=== PATIENT | male | born 1985 | race Caucasian/White ===

== ENCOUNTER 2018-10-03 07:49 | Emergency (ER) | payer BC ==
--- NOTE | 2018-10-03 08:31 | EDM.PDOC ---
ED HPI GENERAL MEDICAL PROBLEM - General Chief Complaint: Abdominal Pain Stated Complaint: ABDOMINAL PAIN RADIATING TO BACK Time Seen by Provider: 10/03/18 08:22 Source of Information: Reports: Patient History Limitations: Reports: No Limitations - History of Present Illness INITIAL COMMENTS - FREE TEXT/NARRATIVE: History of present illness: []Patient has felt pulsating in his abdomen without pain. Patient easily traveled to [facility] and his has the same symptoms. He has not had a change in his stools but states he was more constipated after the trip. She denies any fevers, chills, nausea, vomiting or blood in his stools. He made an appointment with Dr. Castrejon however he states he cannot wait for his appointment on the . Review of systems: As per history of present illness and below otherwise all systems reviewed and negative. Past medical history: As per history of present illness and as reviewed below otherwise noncontributory. Surgical history: As per history of present illness and as reviewed below otherwise noncontributory. Social history: No reported history of drug or alcohol abuse. Family history: As per history of present illness and as reviewed below otherwise noncontributory. Physical exam: General: Well developed, well nourished in NAD HEENT: Atraumatic, normocephalic, pupils reactive, negative for conjunctival pallor or scleral icterus, mucous membranes moist, throat clear, neck supple, nontender, trachea midline. Lungs: Clear to auscultation, breath sounds equal bilaterally, chest nontender. Heart: S1S2, regular, negative for clicks, rubs, or JVD. Abdomen: NABS, Soft, nondistended, nontender. Negative for masses or hepatosplenomegaly. Negative for costovertebral tenderness. Pelvis: Stable nontender. Genitourinary: Deferred. Rectal: Deferred. Extremities: Atraumatic, negative for cords or calf pain. Neurovascular unremarkable. Neuro: Awake, alert, oriented. Cranial nerves II through XII unremarkable. Cerebellum unremarkable. Motor and sensory unremarkable throughout. Exam nonfocal. Skin:warm and dry Diagnostics: Therapeutics: ED Course: Impression: Prescriptions: Plan: Definitive disposition and diagnosis as appropriate pending reevaluation and review of above. - Related Data Allergies Allergy/AdvReac Type Severity Reaction Status Date / Time No Known Allergies Allergy Verified 10/03/18 08:05 Home Meds: Home Meds buPROPion HCl [Wellbutrin Xl] 150 mg PO DAILY 10/03/18 [History] clonazePAM [Klonopin] 1 mg PO PRN 10/03/18 [History] Past Medical History HEENT History: Reports: None Cardiovascular History: Reports: None Respiratory History: Reports: None Gastrointestinal History: Reports: None Genitourinary History: Reports: None Musculoskeletal History: Reports: None Neurological History: Reports: None Psychiatric History: Reports: Anxiety Endocrine/Metabolic History: Reports: None Hematologic History: Reports: None Immunologic History: Reports: None Oncologic (Cancer) History: Reports: None Dermatologic History: Reports: None - Infectious Disease History Infectious Disease History: Reports: None - Past Surgical History Head Surgeries/Procedures: Reports: None HEENT Surgical History: Reports: None Social & Family History - Family History Family Medical History: Noncontributory - Caffeine Use Caffeine Use: Reports: None ED ROS GENERAL - Review of Systems Review Of Systems: ROS reveals no pertinent complaints other than HPI. ED EXAM, GI/ABD - Physical Exam Exam: See Below (See history of present illness) Course - Vital Signs Last Recorded V/S: Last Vital Signs Temp 97.5 F 10/03/18 08:06 Pulse 105 H 10/03/18 08:06 Resp 18 10/03/18 08:06 BP 150/98 H 10/03/18 08:06 Pulse Ox 97 10/03/18 08:06 - Orders/Labs/Meds Labs: Laboratory Tests 10/03/18 10/03/18 10/03/18 Range/Units 08:40 08:40 08:45 WBC 5.45 (4.0-11.0) K/uL RBC 5.37 (4.50-5.90) M/uL Hgb 16.1 (13.0-17.0) g/dL Hct 46.0 (38.0-50.0) % MCV 85.7 (80.0-98.0) fL MCH 30.0 (27.0-32.0) pg MCHC 35.0 (31.0-37.0) g/dL RDW Std Deviation 40.1 (28.0-62.0) fl RDW Coeff of Brant 13 (11.0-15.0) % Plt Count 204 (150-400) K/uL MPV 10.10 (7.40-12.00) fL Neut % (Auto) 58.5 (48.0-80.0) % Lymph % (Auto) 29.2 (16.0-40.0) % [place] % (Auto) 10.1 (0.0-15.0) % Eos % (Auto) 1.8 (0.0-7.0) % Baso % (Auto) 0.4 (0.0-1.5) % Neut # (Auto) 3.2 (1.4-5.7) K/uL Lymph # (Auto) 1.6 (0.6-2.4) K/uL [place] # (Auto) 0.6 (0.0-0.8) K/uL Eos # (Auto) 0.1 (0.0-0.7) K/uL Baso # (Auto) 0.0 (0.0-0.1) K/uL Nucleated RBC % 0.0 /100WBC Nucleated RBCs # 0 K/uL Sodium 141 (136-148) mmol/L Potassium 3.8 (3.5-5.1) mmol/L Chloride 106 (98-107) mmol/L Carbon Dioxide 24.6 (21.0-32.0) mmol/L BUN 23 H (7.0-18.0) mg/dL Creatinine 0.9 (0.8-1.3) mg/dL Est Cr Clr Drug Dosing 149.51 mL/min Estimated GFR (MDRD) > 60.0 ml/min Glucose 111 H (74-106) mg/dL Calcium 9.0 (8.5-10.1) mg/dL Total Bilirubin 0.4 (0.2-1.0) mg/dL AST 24 (15-37) IU/L ALT 66 H (14-63) IU/L Alkaline Phosphatase 56 (46-116) U/L Total Protein 7.3 (6.4-8.2) g/dL Albumin 3.8 (3.4-5.0) g/dL Globulin 3.5 (2.6-4.0) g/dL Albumin/Globulin Ratio 1.1 (0.9-1.6) Lipase 129 (73-393) U/L Urine Color YELLOW Urine Appearance CLEAR Urine pH 5.5 (5.0-8.0) Ur Specific [place] >= 1.030 (1.001-1.035) Urine Protein TRACE H (NEGATIVE) mg/dL Urine Glucose (UA) NEGATIVE (NEGATIVE) mg/dL Urine Ketones NEGATIVE (NEGATIVE) mg/dL Urine Occult Blood NEGATIVE (NEGATIVE) Urine Nitrite NEGATIVE (NEGATIVE) Urine Bilirubin NEGATIVE (NEGATIVE) Urine Urobilinogen 0.2 (<2.0) EU/dL Ur Leukocyte Esterase NEGATIVE (NEGATIVE) Urine RBC NONE SEEN (0-2/HPF) Urine WBC NONE SEEN (0-5/HPF) Ur Epithelial Cells RARE (NONE-FEW) Urine Bacteria RARE (NEGATIVE) Departure - Departure Time of Disposition: 09:42 Disposition: Home, Self-Care 01 Condition: Good Clinical Impression: Abdominal discomfort - Discharge Information *PRESCRIPTION DRUG MONITORING PROGRAM REVIEWED*: No *COPY OF PRESCRIPTION DRUG MONITORING REPORT IN PATIENT ABDIEL: No Referrals: Michael Castrejon MD [Primary Care Provider] - Forms: ED Department Discharge Additional Instructions: The following information is given to patients seen in the emergency department who are being discharged to home. This information is to outline your options for follow-up care. We provide all patients seen in our emergency department with a follow-up referral. The need for follow-up, as well as the timing and circumstances, are variable depending upon the specifics of your emergency department visit. If you don't have a primary care physician on staff, we will provide you with a referral. We always advise you to contact your personal physician following an emergency department visit to inform them of the circumstance of the visit and for follow-up with them and/or the need for any referrals to a consulting specialist. The emergency department will also refer you to a specialist when appropriate. This referral assures that you have the opportunity for follow-up care with a specialist. All of these measure are taken in an effort to provide you with optimal care, which includes your follow-up. Under all circumstances we always encourage you to contact your private physician who remains a resource for coordinating your care. When calling for follow-up care, please make the office aware that this follow-up is from your recent emergency room visit. If for any reason you are refused follow-up, please contact the [facility] Emergency Department at and asked to speak to the emergency department charge nurse. Follow-up with primary care. [facility] [address] [place] [id number]
[2018-10-03 09:07] LABS: CHLORIDE,CL 106 mmol/L (98-107); SODIUM,NA 141 mmol/L (136-148)
[2018-10-03 11:00] VITALS: BP 123/76
== END 2018-10-03 10:05 | disposition home or self-care (01) ==
LOC: MW.ED 07:49
DX: R10.9 Unspecified abdominal pain (principal)
CPT/HCPCS: 36415; 80053; 81001; 83690; 85025; 99283; 99284

== ENCOUNTER 2020-03-06 14:57 | Emergency (ER) | payer BC ==
[2020-03-06] MEDS ORDERED: LORazepam 2 MG/ML SDV IVPUSH ONE (15:07)
[2020-03-06] MEDS ORDERED: Sodium Chloride 0.9% 2.5 ML Syringe FLUSH PRN (15:07)
[2020-03-06] MEDS ORDERED: Sodium Chloride 0.9% 10 ML Syringe FLUSH PRN (15:07)
[2020-03-06] MEDS ORDERED: Lactated Ringers 1,000 ML IV ONE (15:08)
--- NOTE | 2020-03-06 15:13 | EDM.PDOC ---
ED HPI GENERAL MEDICAL PROBLEM - General Chief Complaint: Neuro Symptoms/Deficits Stated Complaint: DIZZY/ARM TINGLING Time Seen by Provider: 03/06/20 15:00 - History of Present Illness INITIAL COMMENTS - FREE TEXT/NARRATIVE: 35-year-old male with history of hypertension and anxiety presenting with left arm paresthesias headache and near syncope. Patient reports he was not feeling particularly anxious in his normal state of health when approximately 30 minutes ago he developed a tingling sensation in his left arm. This was then associated with an intense bilateral occipital headache that was associated with nausea tunnel vision and near syncope. He sat down and drank some water the headache is now more in the frontal area and has improved somewhat. He continues to have the left arm paresthesias. He thought it might be anxiety so he took 1 mg of Klonopin which he has a prescription for. Symptoms did not get better so he presents to the ER. No chest pain no shortness of breath no sensation of palpitation the headache was not sudden in onset was not 10 out of 10 was not worst headache of life. Patient denies weakness he denies a sensation of vertigo he denies any neck pain. Patient does note that over the last day he has had some mild chest congestion. 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 He felt like it was relatively normal for him he took Mucinex and had some symptom improvement. He denies cough or fever. - Related Data Allergies Allergy/AdvReac Type Severity Reaction Status Date / Time No Known Allergies Allergy Verified 03/06/20 15:03 Home Meds: Home Meds buPROPion HCL [Wellbutrin Xl] 300 mg PO DAILY 10/03/18 [History] clonazePAM [Klonopin] 1 mg PO ASDIRECTED PRN 10/03/18 [History] Past Medical History HEENT History: Reports: None Cardiovascular History: Reports: None Respiratory History: Reports: None Gastrointestinal History: Reports: None Genitourinary History: Reports: None Musculoskeletal History: Reports: None Neurological History: Reports: None Psychiatric History: Reports: Anxiety Endocrine/Metabolic History: Reports: None Hematologic History: Reports: None Immunologic History: Reports: None Oncologic (Cancer) History: Reports: None Dermatologic History: Reports: None - Infectious Disease History Infectious Disease History: Reports: None - Past Surgical History Head Surgeries/Procedures: Reports: None HEENT Surgical History: Reports: None Social & Family History - Family History Family Medical History: Noncontributory - Caffeine Use Caffeine Use: Reports: None ED ROS GENERAL - Review of Systems Review Of Systems: See Below Free Text/Narrative/Comment: General: No fever. Skin: No rash. Eyes: No vision problems. ENT: No sore throat. Neck: No neck stiffness. Respiratory: No shortness of breath. Cardiac: No chest pain. Gastrointestinal: No nausea, vomiting or abdominal pain. Urinary: No dysuria. Musculoskeletal: No myalgias/arthralgias. Neurologic: Per HPI ED EXAM, GENERAL - Physical Exam Exam: See Below Free Text/Narrative:: General Appearance: No acute distress, appears comfortable Skin: No rash HEENT: Normocephalic/atraumatic, sclera anicteric, mucous membranes moist Neck: Normal range of motion Chest and Lungs: Bilateral breath sounds, clear to auscultation Cardiovascular: Minimally tachycardic rate, regular rhythm, intact distal perfusion, no lower extremity edema Abdomen: Soft, non-tender Back: Normal Musculoskeletal: No edema or tenderness Neurologic: Awake and alert and oriented, cranial nerves III through XI intact bilaterally, strength intact bilateral upper and lower extremities, normal [id number] bilaterally Psychiatric: Appropriate, cooperative EKG INTERPRETATION EKG Interpretation Comments: Obtained at 1507 demonstrates normal sinus rhythm at a rate of 94 incomplete right bundle branch block QTC normal at 453 no acute ischemia Course - Vital Signs Last Recorded V/S: Last Vital Signs Temp 97.9 F 03/06/20 15:04 Pulse 104 H 03/06/20 15:04 Resp 20 03/06/20 15:04 BP 154/105 H 03/06/20 15:04 Pulse Ox 98 03/06/20 15:04 - Orders/Labs/Meds Orders: Active Orders 24 hr Category Date Time Status Cardiac Monitoring [RC] . DIRECTED Care 03/06/20 15:07 Active EKG Documentation Completion [RC] STAT Care 03/06/20 15:08 Active Pulse Oximetry [RC] ASDIRECTED Care 03/06/20 15:07 Active Sodium Chloride 0.9% [Saline Flush] Med 03/06/20 15:07 Active 10 ml FLUSH ASDIRECTED PRN Sodium Chloride 0.9% [Saline Flush] Med 03/06/20 15:07 Active 2.5 ml FLUSH ASDIRECTED PRN Saline Lock Insert [OM.PC] Stat Oth 03/06/20 15:07 Ordered Medication Orders Sodium Chloride (Saline Flush) 10 ml FLUSH ASDIRECTED PRN PRN Reason: Keep Vein Open Last Admin: 03/06/20 15:21 Dose: 10 ml Documented by: MAXIMILIANO Sodium Chloride (Saline Flush) 2.5 ml FLUSH ASDIRECTED PRN PRN Reason: Keep Vein Open Last Admin: 03/06/20 15:21 Dose: 2.5 ml Documented by: MAXIMILIANO Labs: Laboratory Tests 03/06/20 03/06/20 Range/Units 15:15 15:15 WBC 4.63 (4.0-11.0) K/uL RBC 5.29 (4.50-5.90) M/uL Hgb 15.5 (13.0-17.0) g/dL Hct 45.6 (38.0-50.0) % MCV 86.2 (80.0-98.0) fL MCH 29.3 (27.0-32.0) pg MCHC 34.0 (31.0-37.0) g/dL RDW Std Deviation 41.7 (28.0-62.0) fl RDW Coeff of Brant 13 (11.0-15.0) % Plt Count 200 (150-400) K/uL MPV 10.50 (7.40-12.00) fL Neut % (Auto) 54.7 (48.0-80.0) % Lymph % (Auto) 33.7 (16.0-40.0) % [place] % (Auto) 9.3 (0.0-15.0) % Eos % (Auto) 1.9 (0.0-7.0) % Baso % (Auto) 0.4 (0.0-1.5) % Neut # (Auto) 2.5 (1.4-5.7) K/uL Lymph # (Auto) 1.6 (0.6-2.4) K/uL [place] # (Auto) 0.4 (0.0-0.8) K/uL Eos # (Auto) 0.1 (0.0-0.7) K/uL Baso # (Auto) 0.0 (0.0-0.1) K/uL Nucleated RBC % 0.0 /100WBC Nucleated RBCs # 0 K/uL Sodium 138 (136-148) mmol/L Potassium 3.6 (3.5-5.1) mmol/L Chloride 102 (98-107) mmol/L Carbon Dioxide 24.4 (21.0-32.0) mmol/L BUN 19 H (7.0-18.0) mg/dL Creatinine 0.7 L (0.8-1.3) mg/dL Est Cr Clr Drug Dosing 188.60 mL/min Estimated GFR (MDRD) > 60.0 ml/min Glucose 107 H (74-106) mg/dL Calcium 8.8 (8.5-10.1) mg/dL Total Bilirubin 0.6 (0.2-1.0) mg/dL AST 32 (15-37) IU/L ALT 64 H (14-63) IU/L Alkaline Phosphatase 57 (46-116) U/L Troponin I < 0.050 (0.000-0.056) ng/mL Total Protein 7.1 (6.4-8.2) g/dL Albumin 4.0 (3.4-5.0) g/dL Globulin 3.1 (2.6-4.0) g/dL Albumin/Globulin Ratio 1.3 (0.9-1.6) Meds: Medications Generic Name Dose Route Start Last Admin Trade Name Fremyra PRN Reason Stop Dose Admin Sodium Chloride 10 ml 03/06/20 15:07 03/06/20 15:21 Saline Flush FLUSH 10 ml ASDIRECTED PRN Administration Keep Vein Open Sodium Chloride 2.5 ml 03/06/20 15:07 03/06/20 15:21 Saline Flush FLUSH 2.5 ml ASDIRECTED PRN Administration Keep Vein Open Discontinued Medications Generic Name Dose Route Start Last Admin Trade Name Freq PRN Reason Stop Dose Admin Lactated Ringer's 1,000 mls @ 999 mls/hr 03/06/20 15:08 03/06/20 15:20 Ringers, Lactated IV 03/06/20 16:08 999 mls/hr .BOLUS ONE Administration Lorazepam 1 mg 03/06/20 15:07 03/06/20 15:20 Ativan IVPUSH 03/06/20 15:08 1 mg ONETIME ONE Administration Departure - Departure Time of Disposition: 16:49 Disposition: Home, Self-Care 01 Condition: Good Clinical Impression: Paresthesias, Near syncope - Discharge Information *PRESCRIPTION DRUG MONITORING PROGRAM REVIEWED*: Not Applicable *COPY OF PRESCRIPTION DRUG MONITORING REPORT IN PATIENT ABDIEL: Not Applicable Instructions: Paresthesia, Near-Syncope Referrals: Michael Castrejon MD [Primary Care Provider] - Forms: ED Department Discharge Additional Instructions: You did appropriate self care prior to coming into the emergency room. The fact that your evaluation was reassuring today does not mean that it will be in the future. If you develop similar symptoms and they do not go away with rest oral fluids and your home medication I encourage you to present again for care. Please be sure to follow-up with your primary care doctor. The following information is given to patients seen in the emergency department who are being discharged to home. This information is to outline your options for follow-up care. We provide all patients seen in our emergency department with a follow-up referral. The need for follow-up, as well as the timing and circumstances, are variable depending upon the specifics of your emergency department visit. If you don't have a primary care physician on staff, we will provide you with a referral. We always advise you to contact your personal physician following an emergency department visit to inform them of the circumstance of the visit and for follow-up with them and/or the need for any referrals to a consulting specialist. The emergency department will also refer you to a specialist when appropriate. This referral assures that you have the opportunity for follow-up care with a specialist. All of these measure are taken in an effort to provide you with optimal care, which includes your follow-up. Under all circumstances we always encourage you to contact your private physician who remains a resource for coordinating your care. When calling for follow-up care, please make the office aware that this follow-up is from your recent emergency room visit. If for any reason you are refused follow-up, please contact the [facility] Emergency Department at and asked to speak to the emergency department charge nurse. Sepsis Event Note (ED) - Evaluation Sepsis Screening Result: No Definite Risk - Focused Exam Vital Signs: Vital Signs Temp Pulse Resp BP Pulse Ox 03/06/20 15:04 97.9 F 104 H 20 154/105 H 98 - My Orders Last 24 Hours: My Active Orders 03/06/20 15:07 Cardiac Monitoring [RC] . DIRECTED Pulse Oximetry [RC] ASDIRECTED Sodium Chloride 0.9% [Saline Flush] 10 ml FLUSH ASDIRECTED PRN Sodium Chloride 0.9% [Saline Flush] 2.5 ml FLUSH ASDIRECTED PRN Saline Lock Insert [OM.PC] Stat 03/06/20 15:08 EKG Documentation Completion [RC] STAT - Assessment/Plan Last 24 Hours: My Active Orders 03/06/20 15:07 Cardiac Monitoring [RC] . DIRECTED Pulse Oximetry [RC] ASDIRECTED Sodium Chloride 0.9% [Saline Flush] 10 ml FLUSH ASDIRECTED PRN Sodium Chloride 0.9% [Saline Flush] 2.5 ml FLUSH ASDIRECTED PRN Saline Lock Insert [OM.PC] Stat 03/06/20 15:08 EKG Documentation Completion [RC] STAT Assessment:: 35-year-old male presenting with paresthesias headache and near syncope. Multiple etiologies considered. Patient's neurologic exam is normal. He has no neuro deficit on exam presentation inconsistent with stroke. Subarachnoid hemorrhage considered I think it is unlikely given the description of the headache but symptom onset was within [address] scan of the brain will adequately exclude this. ACS considered the left arm paresthesias could be an anginal equivalent but he is relatively young for this. EKG and troponin pending. Nothing to suggest PE. Aortic dissection considered but he does not have any chest pain he does not have any back pain. There is no vertigo vertebral artery dissection considered and felt less likely. Stress and anxiety certainly could be a part of this IV fluid and Ativan has been ordered. Will reassess after imaging and blood work. Patient symptoms have resolved with Ativan and IV fluids. Imaging is normal blood work is normal. We discussed that getting started on the medication for his palpitations such as metoprolol may help but that it is important he follow- up with his primary care provider regarding this. Given the negative evaluation here the reassuring work-up I think it safe for discharge he can continue to follow-up with his primary care doctor. Return precautions discussed and understood.
[2020-03-06 16:03] LABS: BLOOD UREA NITROGEN,BUN 19 mg/dL (7.0-18.0); CARBON DIOXIDE,CO2 24.4 mmol/L (21.0-32.0); CHLORIDE,CL 102 mmol/L (98-107); GLUCOSE RANDOM 107 mg/dL (74-106); POTASSIUM,K 3.6 mmol/L (3.5-5.1); SODIUM,NA 138 mmol/L (136-148)
--- NOTE | 2020-03-06 16:26 | CR ---
Chest: 2 views of the chest were obtained. Comparison: Prior chest x-ray of 07/16/16. Heart size and mediastinum are normal. Lungs are clear with no acute parenchymal change. Bony structures are unremarkable for the patient's age. Impression: 1. Nothing acute is seen on 2 view chest x-ray. Diagnostic code #1 This report was dictated in MDT
--- NOTE | 2020-03-06 16:36 | CT ---
Head CT Technique: Multiple axial sections through the brain were obtained. Intravenous contrast was not utilized. Comparison: No previous intracranial imaging is available. Findings: Ventricles along with basal cisterns and sulci over the convexities are within normal limits for the patient's age. No abnormal parenchymal densities are seen. No evidence of intracranial hemorrhage. No midline shift or mass-effect is seen. Bone window settings were reviewed. Opacified right side of the sphenoid sinus is noted. Mastoid sinuses are clear. No acute calvarial finding is seen. Impression: 1. Opacified right side of the sphenoid sinus most likely representing chronic sinusitis. 2. No acute intracranial abnormality is appreciated. Diagnostic code #2 This report was dictated in MDT
[2020-03-06 17:43] VITALS: BP 136/89; PULSE 90
== END 2020-03-06 17:11 | disposition home or self-care (01) ==
LOC: MW.ED 14:57
DX: R55 Syncope and collapse (principal); R20.2 Paresthesia of skin; I10 Essential (primary) hypertension; F41.9 Anxiety disorder, unspecified; I45.10 Unspecified right bundle-branch block; Z79.899 Other long term (current) drug therapy
CPT/HCPCS: 36415; 70450; 71046; 80053; 84484; 85025; 93005; 96361; 96374; 99284; J2060; J7120; 99283